=== PATIENT | male | born 1970 | race Caucasian/White ===

== ENCOUNTER 2017-01-13 11:32 | Emergency (ER) | payer MEDICARE, OTHER ==
[~2017-01-13] VITALS: Ht 177.8 cm; Wt 95.0 kg
[2017-01-13 11:49] VITALS: Ht 177.8 cm; Wt 95.0 kg
--- NOTE | 2017-01-13 11:49 | ERD ---
ER Documentation Chief Complaint Date/Time DATE: 01/13/17 TIME: 11:46 Chief Complaint HPI 41-year-old male with history of traumatic brain injury, depression and seizure disorder brought to the ED via ambulance after witnessed tonic-clonic seizure. Patient is maintained on Trileptal and Keppra. His Keppra dose was increased yesterday by his neurologist due to breakthrough seizure last week. No URI symptoms, cough, odynophagia or rhinorrhea. Denies chest pain, shortness of breath or palpitations. No abdominal pain, nausea, vomiting, diarrhea or constipation. No dysuria, polyuria or flank pain. No insomnia. Denies depression or anxiety. No fevers or chills. ROS All systems reviewed and are negative except as per history of present illness. Medications Home Meds Reported Medications Olanzapine* (Zyprexa*) 5 Mg Tablet, 5 MG PO DAILY, #30 TAB 01/13/17 Multivitamins* (Theragran*) 1 Tab Tab, 1 TAB PO DAILY, TAB 01/13/17 Esomeprazole Mag Trihydrate (Nexium) 40 Mg Capsule.dr, 40 MG PO DAILY, #30 CAP 01/13/17 Lacosamide (Vimpat) 200 Mg Tablet, 200 MG PO BID, TAB 01/13/17 Levetiracetam* (Keppra*) 750 Mg Tablet, 1500 MG PO BID, TAB 01/13/17 Loratadine* (Claritin*) 10 Mg Capsule, 10 MG PO DAILY, CAP 01/13/17 Escitalopram Oxalate* (Lexapro*) 10 Mg Tablet, 10 MG PO DAILY, #30 TAB 01/13/17 Oxcarbazepine* (Trileptal*) 600 Mg Tablet, 600 MG PO BID, TAB 01/13/17 Allergies Allergies: Coded Allergies: Penicillins (Unverified Allergy, Unknown, 01/13/17) PMhx/Soc Reviewed in chart. As per HPI. Hx Neurological Disorder: Yes (Traumatic brain injury in childhood seizure disorder) Hx Respiratory Disorders: No Hx Cardiac Disorders: No Hx Psychiatric Problems: Yes (Depression) Hx Miscellaneous Medical Probl: No Hx Alcohol Use: No Hx Substance Use: No Hx Tobacco Use: No FmHx Unknown Physical Exam Vitals Vital Signs Date Time Temp Pulse Resp B/P Pulse Ox O2 Delivery O2 Flow Rate FiO2 01/13/17 12:00 112/70 01/13/17 11:49 98.4 71 16 66/65 99 Physical Exam Const: Alert, no acute distress Head: Atraumatic Eyes: Normal Conjunctiva ENT: Normal External Ears, Nose and Mouth. Neck: Full range of motion. No meningismus. Nontender. Resp: Clear to auscultation bilaterally Cardio: Regular rate and rhythm, no murmurs Abd: Soft, non tender, non distended. Normal bowel sounds Skin: No petechiae or rashes Back: No midline or flank tenderness Ext: No cyanosis, or edema Neur: Awake and alert Psych: Normal Mood and Affect Result Diagram: 01/13/17 1225 Results 24 hrs Laboratory Tests Test 01/13/17 12:25 White Blood Count 12.110^3/ul Red Blood Count 5.3910^6/ul Hemoglobin 16.5g/dl Hematocrit 45.4% Mean Corpuscular Volume 84.2fl Mean Corpuscular Hemoglobin 30.6pg Mean Corpuscular Hemoglobin Concent 36.3g/dl Red Cell Distribution Width 12.3% Platelet Count 45634^3/UL Mean Platelet Volume 9.4fl Neutrophils % 85.5% Lymphocytes % 7.5% Monocytes % 5.5% Eosinophils % 0.6% Basophils % 0.6% Nucleated Red Blood Cells % 0.0/100WBC Neutrophils # 10.310^3/ul Lymphocytes # 0.910^3/ul Monocytes # 0.710^3/ul Eosinophils # 0.110^3/ul Basophils # 0.110^3/ul Nucleated Red Blood Cells # 0.010^3/ul Procedures/MDM DOCUMENTS REVIEWED: ED nurse, no prior records REEXAMINATION/REEVALUATION: Time:13:00. Doing well. Alert and oriented. Back to baseline. No headache or neck pain [employer]-year-old male with history of traumatic brain injury, depression and seizure disorder brought to the ED via ambulance after witnessed tonic-clonic seizure. Patient with a long history of seizure disorder presents with breakthrough seizures. Actually had a seizure last week and his Keppra dose was increased. No electrolyte abnormalities or hypoglycemia. No signs or symptoms of an occult infectious etiology. Patient is taking his medications as prescribed. Stable for discharge precautionary instructions and outpatient follow-up with his neurologist as counseled. Counseled patient regarding diagnostic workup, diagnosis and need for followup. Understands to return to ED if symptoms recur, worsen or any other concerns. Departure Diagnosis: Primary Impression: Seizure disorder Additional Impressions: History of traumatic brain injury History of depression Condition: Stable (Improved) HARRISON VELEZ MD Jan 13, 2017 11:49 HARRISON VELEZ MD Jan 13, 2017 11:49
[2017-01-13 12:00] VITALS: BP 112/70
[2017-01-13] MEDS ORDERED: ESCI10TA PO (12:11)
[2017-01-13] MEDS ORDERED: LORA10CA PO (12:11)
[2017-01-13] MEDS ORDERED: OXCA600T3 PO (12:11)
[2017-01-13] MEDS ORDERED: LEVE750T70 PO (12:12)
[2017-01-13] MEDS ORDERED: LACO200T2 PO (12:12)
[2017-01-13] MEDS ORDERED: MULTI PO (12:13)
[2017-01-13] MEDS ORDERED: OLAN5TAB5 PO (12:13)
[2017-01-13] MEDS ORDERED: ESOM40CA PO (12:13)
[2017-01-13 12:36] LABS: BASOPHIL # 0.1 10^3/ul (0.0-0.1); BASOPHILS % 0.6 % (0.0-2.0); EOSINOPHILS # 0.1 10^3/ul (0.0-0.5); EOSINOPHILS % 0.6 % (0.0-7.0); HEMATOCRIT 45.4 % (42.0-52.0); HEMOGLOBIN 16.5 g/dl (14.0-18.0); LYMPHOCYTES # 0.9 10^3/ul (0.8-2.9); LYMPHOCYTES % 7.5 % (15.0-51.0); MEAN CORPUSCULAR HEMOGLOBIN 30.6 pg (29.0-33.0); MEAN CORPUSCULAR HGB CONC 36.3 g/dl (32.0-37.0); MEAN CORPUSCULAR VOLUME 84.2 fl (82.0-101.0); MEAN PLATELET VOLUME 9.4 fl (7.4-10.4); MONOCYTE # 0.7 10^3/ul (0.3-0.9); MONOCYTES % 5.5 % (0.0-11.0); NEUTROPHIL # 10.3 10^3/ul (1.6-7.5); NEUTROPHILS % 85.5 % (39.0-77.0); PLATELET COUNT 180 10^3/UL (140-415); RED BLOOD COUNT 5.39 10^6/ul (4.70-6.10); RED CELL DISTRIBUTION WIDTH 12.3 % (11.5-14.5); WHITE BLOOD COUNT 12.1 10^3/ul (4.8-10.8)
[2017-01-13 13:11] LABS: CALCIUM 9.7 mg/dl (8.4-10.2); POTASSIUM 3.8 mmol/L (3.5-5.1)
== END 2017-01-13 14:29 | disposition home or self-care (01) ==
LOC: E/R 11:32 → MERGE 11:32 → EDBD 11:32 → E/R 14:29
DX: G40.909 Epilepsy, unspecified, not intractable, without status epilepticus (principal); R40.2352 Coma scale, best motor response, localizes pain, at arrival to emergency department; R40.2122 Coma scale, eyes open, to pain, at arrival to emergency department; R40.2212 Coma scale, best verbal response, none, at arrival to emergency department; Z86.59 Personal history of other mental and behavioral disorders; Z87.820 Personal history of traumatic brain injury
CPT/HCPCS: 80048; 85025; 99283